=== PATIENT | male | born 1955 | race American Indian/Alaskan Native ===

== ENCOUNTER 2021-03-20 18:18 | Inpatient (IN) | payer OTHER, MEDICARE ==
[2021-03-20] MEDS ORDERED: SODIUM CHLORIDE 0.9% 1000 ML 1,000 ML IV ONE (20:05)
--- NOTE | 2021-03-20 20:07 | Emergency Department Report ---
HPI - General Time Seen by Provider: 03/20/21 20:05 - HPI HPI: This is a 65-year-old -[place] male presents to the emergency department via [facility] after a bystander or passerby noticed him slumped over in his wheelchair on the side of [facility] [[email or web address]] and called 911. The patient is currently altered and therefore a poor historian. He has never been to this emergency department previously. Unknown past medical history. He had an Accu- Chek in route that was about 120. No medications were given. EMS says that the patient became slightly more responsive once he was in the back of the ambulance with the air conditioning on him, but then once again was altered. EMS says that the patient had a room air oxygen saturation of 77% so he was placed on 3 L via nasal cannula and went up into the 90s. ED Past Medical Hx - Medications Home Medications: Home Medications Medication Instructions Recorded Confirmed Last Taken Type Amlodipine Besylate [Norvasc] 10 mg PO DAILY 03/23/21 03/23/21 03/19/21 History ED Review of Systems ROS: Stated complaint: AMS Other details as noted in HPI Comment: Unobtainable due to pts medical conditions Physical Exam - Physical Exam Physical Exam: GENERAL: The patient is well-developed well-nourished. HENT: Normocephalic. Atraumatic. Patient has moist mucous membranes. EYES: Extraocular motions are intact. Pupils equal reactive to light bilaterally. NECK: Supple. Trachea is midline. CHEST/LUNGS: Clear to auscultation. There is no respiratory distress noted. HEART/CARDIOVASCULAR: Regular. There is no tachycardia. There is no murmur. ABDOMEN: Abdomen is soft, nontender. Patient has normal bowel sounds. There is no abdominal distention. SKIN: Skin is warm and dry. NEURO: The patient is very sleepy but is easily arousable. Once awake he is oriented to person, place, time. However, he goes right back to sleep if not continuously stimulated. No facial asymmetry. Cranial nerves II through XII grossly intact. MUSCULOSKELETAL: There is no tenderness or deformity. ED Medical Decision Making - Lab Data Result diagrams: 03/22/21 05:09 03/22/21 05:09 Lab Results 03/20/21 03/20/21 03/20/21 Range/Units 20:49 20:49 20:49 WBC 4.8 (4.5-11.0) K/mm3 RBC 4.52 (3.65-5.03) M/mm3 Hgb 14.0 (11.8-15.2) gm/dl Hct 43.3 (35.5-45.6) % MCV 96 H (84-94) fl MCH 31 (28-32) pg MCHC 32 (32-34) % RDW 14.5 (13.2-15.2) % Plt Count 228 (140-440) K/mm3 Lymph % (Auto) 23.8 (13.4-35.0) % [place] % (Auto) 7.7 H (0.0-7.3) % Eos % (Auto) 1.4 (0.0-4.3) % Baso % (Auto) 0.4 (0.0-1.8) % Lymph # (Auto) 1.1 L (1.2-5.4) K/mm3 [place] # (Auto) 0.4 (0.0-0.8) K/mm3 Eos # (Auto) 0.1 (0.0-0.4) K/mm3 Baso # (Auto) 0.0 (0.0-0.1) K/mm3 Seg Neutrophils % 66.7 (40.0-70.0) % Seg Neutrophils # 3.2 (1.8-7.7) K/mm3 ABG pH (7.320-7.450) POC ABG pCO2 (32.0-48.0) mmHg POC ABG pO2 (83-108) mmHg POC ABG HCO3 ABG O2 Saturation (0-100) POC ABG Base Excess ABG Hemoglobin (12.0-17.5) ABG Oxyhemoglobin (94-98) ABG Methemoglobin (0.0-1.5) ABG Sodium (136.0-145.0) mmol/L ABG Potassium (3.40-4.50) mmol/L ABG Chloride (98-107) mmol/L ABG Glucose (65-95) mg/dL Carboxyhemoglobin (0.5-1.5) FiO2 % Sodium 140 (137-145) mmol/L Potassium 4.0 (3.6-5.0) mmol/L Chloride 105.8 (98-107) mmol/L Carbon Dioxide 22 (22-30) mmol/L Anion Gap 16 mmol/L BUN 7 L (9-20) mg/dL Creatinine 1.2 (0.8-1.3) mg/dL Estimated GFR > 60 ml/min BUN/Creatinine Ratio 6 % Glucose 107 H (75-100) mg/dL Calcium 9.1 (8.4-10.2) mg/dL Total Bilirubin 0.70 (0.1-1.2) mg/dL AST 27 (5-40) units/L ALT 31 (7-56) units/L Alkaline Phosphatase 72 (35-129) units/L Ammonia 26.0 (25-60) umol/L Troponin T < 0.010 (0.00-0.029) ng/mL Total Protein 7.5 (6.3-8.2) g/dL Albumin 4.3 (3.9-5) g/dL Albumin/Globulin Ratio 1.3 % TSH (0.270-4.200) mlU/mL Arterial Blood Glucose (65-95) mg/dL Urine Color (Yellow) Urine Turbidity (Clear) Urine pH (5.0-7.0) Ur Specific [place] (1.003-1.030) Urine Protein (Negative) mg/dL Urine Glucose (UA) (Negative) mg/dL Urine Ketones (Negative) mg/dL Urine Blood (Negative) Urine Nitrite (Negative) Urine Bilirubin (Negative) Urine Urobilinogen (<2.0) mg/dL Ur Leukocyte Esterase (Negative) Urine WBC (Auto) (0.0-6.0) /HPF Urine RBC (Auto) (0.0-6.0) /HPF Urine Mucus /HPF Urine Opiates Screen Urine Methadone Screen Ur Barbiturates Screen Ur Phencyclidine Scrn Ur Amphetamines Screen U Benzodiazepines Scrn Urine Cocaine Screen U Marijuana (THC) Screen Plasma/Serum Alcohol (0-0.07) % 03/20/21 03/20/21 03/20/21 Range/Units 20:49 20:49 21:12 WBC (4.5-11.0) K/mm3 RBC (3.65-5.03) M/mm3 Hgb (11.8-15.2) gm/dl Hct (35.5-45.6) % MCV (84-94) fl MCH (28-32) pg MCHC (32-34) % RDW (13.2-15.2) % Plt Count (140-440) K/mm3 Lymph % (Auto) (13.4-35.0) % [place] % (Auto) (0.0-7.3) % Eos % (Auto) (0.0-4.3) % Baso % (Auto) (0.0-1.8) % Lymph # (Auto) (1.2-5.4) K/mm3 [place] # (Auto) (0.0-0.8) K/mm3 Eos # (Auto) (0.0-0.4) K/mm3 Baso # (Auto) (0.0-0.1) K/mm3 Seg Neutrophils % (40.0-70.0) % Seg Neutrophils # (1.8-7.7) K/mm3 ABG pH 7.337 (7.320-7.450) POC ABG pCO2 41.7 (32.0-48.0) mmHg POC ABG pO2 68.7 L (83-108) mmHg POC ABG HCO3 21.8 ABG O2 Saturation 93.1 (0-100) POC ABG Base Excess -3.8 ABG Hemoglobin 12.8 (12.0-17.5) ABG Oxyhemoglobin 85.8 L (94-98) ABG Methemoglobin 0.3 (0.0-1.5) ABG Sodium 140.3 (136.0-145.0) mmol/L ABG Potassium 3.8 (3.40-4.50) mmol/L ABG Chloride 109.0 H (98-107) mmol/L ABG Glucose 113 H (65-95) mg/dL Carboxyhemoglobin 7.5 H (0.5-1.5) FiO2 % 21.0 Sodium (137-145) mmol/L Potassium (3.6-5.0) mmol/L Chloride (98-107) mmol/L Carbon Dioxide (22-30) mmol/L Anion Gap mmol/L BUN (9-20) mg/dL Creatinine (0.8-1.3) mg/dL Estimated GFR ml/min BUN/Creatinine Ratio % Glucose (75-100) mg/dL Calcium (8.4-10.2) mg/dL Total Bilirubin (0.1-1.2) mg/dL AST (5-40) units/L ALT (7-56) units/L Alkaline Phosphatase (35-129) units/L Ammonia (25-60) umol/L Troponin T (0.00-0.029) ng/mL Total Protein (6.3-8.2) g/dL Albumin (3.9-5) g/dL Albumin/Globulin Ratio % TSH 0.309 (0.270-4.200) mlU/mL Arterial Blood Glucose 113 H (65-95) mg/dL Urine Color (Yellow) Urine Turbidity (Clear) Urine pH (5.0-7.0) Ur Specific [place] (1.003-1.030) Urine Protein (Negative) mg/dL Urine Glucose (UA) (Negative) mg/dL Urine Ketones (Negative) mg/dL Urine Blood (Negative) Urine Nitrite (Negative) Urine Bilirubin (Negative) Urine Urobilinogen (<2.0) mg/dL Ur Leukocyte Esterase (Negative) Urine WBC (Auto) (0.0-6.0) /HPF Urine RBC (Auto) (0.0-6.0) /HPF Urine Mucus /HPF Urine Opiates Screen Urine Methadone Screen Ur Barbiturates Screen Ur Phencyclidine Scrn Ur Amphetamines Screen U Benzodiazepines Scrn Urine Cocaine Screen U Marijuana (THC) Screen Plasma/Serum Alcohol < 0.01 (0-0.07) % 03/20/21 03/20/21 Range/Units 23:51 23:51 WBC (4.5-11.0) K/mm3 RBC (3.65-5.03) M/mm3 Hgb (11.8-15.2) gm/dl Hct (35.5-45.6) % MCV (84-94) fl MCH (28-32) pg MCHC (32-34) % RDW (13.2-15.2) % Plt Count (140-440) K/mm3 Lymph % (Auto) (13.4-35.0) % [place] % (Auto) (0.0-7.3) % Eos % (Auto) (0.0-4.3) % Baso % (Auto) (0.0-1.8) % Lymph # (Auto) (1.2-5.4) K/mm3 [place] # (Auto) (0.0-0.8) K/mm3 Eos # (Auto) (0.0-0.4) K/mm3 Baso # (Auto) (0.0-0.1) K/mm3 Seg Neutrophils % (40.0-70.0) % Seg Neutrophils # (1.8-7.7) K/mm3 ABG pH (7.320-7.450) POC ABG pCO2 (32.0-48.0) mmHg POC ABG pO2 (83-108) mmHg POC ABG HCO3 ABG O2 Saturation (0-100) POC ABG Base Excess ABG Hemoglobin (12.0-17.5) ABG Oxyhemoglobin (94-98) ABG Methemoglobin (0.0-1.5) ABG Sodium (136.0-145.0) mmol/L ABG Potassium (3.40-4.50) mmol/L ABG Chloride (98-107) mmol/L ABG Glucose (65-95) mg/dL Carboxyhemoglobin (0.5-1.5) FiO2 % Sodium (137-145) mmol/L Potassium (3.6-5.0) mmol/L Chloride (98-107) mmol/L Carbon Dioxide (22-30) mmol/L Anion Gap mmol/L BUN (9-20) mg/dL Creatinine (0.8-1.3) mg/dL Estimated GFR ml/min BUN/Creatinine Ratio % Glucose (75-100) mg/dL Calcium (8.4-10.2) mg/dL Total Bilirubin (0.1-1.2) mg/dL AST (5-40) units/L ALT (7-56) units/L Alkaline Phosphatase (35-129) units/L Ammonia (25-60) umol/L Troponin T (0.00-0.029) ng/mL Total Protein (6.3-8.2) g/dL Albumin (3.9-5) g/dL Albumin/Globulin Ratio % TSH (0.270-4.200) mlU/mL Arterial Blood Glucose (65-95) mg/dL Urine Color Yellow (Yellow) Urine Turbidity Clear (Clear) Urine pH 5.0 (5.0-7.0) Ur Specific [place] 1.006 (1.003-1.030) Urine Protein <15 mg/dl (Negative) mg/dL Urine Glucose (UA) Neg (Negative) mg/dL Urine Ketones Neg (Negative) mg/dL Urine Blood Neg (Negative) Urine Nitrite Neg (Negative) Urine Bilirubin Neg (Negative) Urine Urobilinogen 4.0 (<2.0) mg/dL Ur Leukocyte Esterase Neg (Negative) Urine WBC (Auto) < 1.0 (0.0-6.0) /HPF Urine RBC (Auto) 1.0 (0.0-6.0) /HPF Urine Mucus Few /HPF Urine Opiates Screen Presumptive negative Urine Methadone Screen Presumptive negative Ur Barbiturates Screen Presumptive negative Ur Phencyclidine Scrn Presumptive negative Ur Amphetamines Screen Presumptive negative U Benzodiazepines Scrn Presumptive negative Urine Cocaine Screen Presumptive positive U Marijuana (THC) Screen Presumptive positive Plasma/Serum Alcohol (0-0.07) % - EKG Data -: EKG Interpreted by Me EKG shows normal: sinus rhythm, axis (Left axis deviation), intervals, QRS complexes, ST-T waves (Some flattening of the T waves) Rate: bradycardia (50 bpm) - EKG Data When compared to previous EKG there are: previous EKG unavailable Interpretation: other (Sinus bradycardia at 50 bpm, left axis deviation, normal intervals, some flattening of the T waves. No ST elevation LA) - Radiology Data Radiology results: report reviewed, image reviewed interpreted by me: Chest x-ray does not show any acute process. There are no pleural effusions, obvious pneumonia and there is no pneumothorax. CT HEAD WITHOUT CONTRAST INDICATION / CLINICAL INFORMATION: Altered mental status. TECHNIQUE: All CT scans at this location are performed using CT dose reduction for ALARA by means of automated exposure control. COMPARISON: None available. FINDINGS: HEMORRHAGE: No evidence of intracranial hemorrhage or extra-axial fluid collection. EXTRA-AXIAL SPACES: Cortical sulci and sylvian fissures are enlarged reflecting a degree of parenchymal volume loss which is greater than expected for the patient's age of 65 years. Basilar cisterns have an unremarkable appearance. VENTRICULAR SYSTEM: The third and lateral ventricles are enlarged reflecting presence of moderate parenchymal volume loss. CEREBRAL PARENCHYMA: Periventricular and deep white matter lucency is observed. This is probably secondary to microvascular ischemic change. There is no indication of recent infarction. There is a region of encephalomalacia in the left frontal operculum consistent with remote left MCA infarction. MIDLINE SHIFT OR HERNIATION: There is no mass effect. CEREBELLUM / BRAINSTEM: Brainstem has an unremarkable appearance. Age related cerebellar atrophy is noted. MIDLINE STRUCTURES:Pituitary gland has an unremarkable appearance. No abnormalities are seen in the pineal region. INTRACRANIAL VESSELS:Calcified atherosclerotic plaque is present along the course of the cavernous segments of both internal carotid arteries. Similar findings are seen at the distal vertebral tequila silviano. ORBITS: visualized portions of the orbits have an unremarkable appearance. SOFT TISSUES of HEAD: No significant abnormality. CALVARIUM: Evaluation of bone windows reveals no abnormalities. PARANASAL SINUSES / MASTOID AIR CELLS: Paranasal sinuses are free from inflammatory mucosal disease. Mastoid air cells are normally pneumatized. ADDITIONAL FINDINGS: None. IMPRESSION: 1. Age-related involutional changes of parenchymal volume loss and microvascular ischemia. The expected for age 65 years.. 2. Evidence of remote left MCA infarction. 3. No acute intracranial abnormality. - Medical Decision Making Initially this patient came in after the patient was seen slumped over in his wheelchair on the side of the road. The patient was arousable but is very sleepy and goes back to sleep if not continuously stimulated. CT scan of the head without contrast does not show any hemorrhage, large vessel occlusion, edema, hydrocephalus, or any other acute process. Chest x-ray does not show any pneumonia, pleural effusions, pneumothorax, widened mediastinum, or any other acute process. The patient's labs have been mostly unremarkable including CBC, metabolic panel, normal thyroid function, ammonia, urinalysis. UDS positive for cocaine and marijuana. EKG does not have any morphology consistent with ST elevation myocardial infarction. EMS said that the patient had an initial pulse ox of 77% on room air. For this reason, the patient's supplemental oxygen was removed so we could get a room air ABG. The PO2 is slightly decreased but the oxygen saturation was 93% on the ABG. The patient has remained in the emergency department for about 7 hours th us far and has been 95% or above on oxygen saturation without any supplemental oxygen. The patient has been reevaluated multiple times over multiple hours and he is much more awake and alert. He now admits to some cocaine use this evening. The patient is able to tell me that he uses a wheelchair secondary to a previous neck injury that left him with a chronic unstable gait. Initially I had hoped that the patient will remain awake and alert enough to test him in his wheelchair and assess for discharge. However, it appears that he continued to have intermittent episodes of sedation and/or alertness. This did not appear consistent with acute cocaine use, nor withdrawal. Patient was seen by my colleague and admitted to the hospital for further evaluation and treatment. Critical Care Time: No Critical care attestation.: If time is entered above; I have spent that time in minutes in the direct care of this critically ill patient, excluding procedure time. ED Disposition Clinical Impression: Unresponsive episode, Cocaine abuse Disposition: DC-01 TO HOME OR SELFCARE Is pt being admited?: No Condition: Stable Time of Disposition: 01:44
[2021-03-20] MEDS ORDERED: NALOXONE 2 MG/2 ML INJ IV ONE (20:35)
--- NOTE | 2021-03-20 20:35 | XRay Report ---
CHEST 1 VIEW INDICATION / CLINICAL INFORMATION: Altered mental status. COMPARISON: None available. FINDINGS: SUPPORT DEVICES: None. HEART / MEDIASTINUM: No significant abnormality. LUNGS / PLEURA: No significant pulmonary or pleural abnormality. No pneumothorax. ADDITIONAL FINDINGS: No significant additional findings. IMPRESSION: 1. No acute findings. Signer Name: Gail Rodriguez MD Signed: 03/20/2021 8:31 PM Workstation Name: [id number]
--- NOTE | 2021-03-20 21:05 | Cat Scan Report ---
CT HEAD WITHOUT CONTRAST INDICATION / CLINICAL INFORMATION: Altered mental status. TECHNIQUE: All CT scans at this location are performed using CT dose reduction for ALARA by means of automated e xposure control. COMPARISON: None available. FINDINGS: HEMORRHAGE: No evidence of intracranial hemorrhage or extra-axial fluid collection. EXTRA-AXIAL SPACES: Cortical sulci and sylvian fissures are enlarged reflecting a degree of parenchym al volume loss which is greater than expected for the patient's age of 65 years. Basilar cisterns hav e an unremarkable appearance. VENTRICULAR SYSTEM: The third and lateral ventricles are enlarged reflecting presence of moderate par enchymal volume loss. CEREBRAL PARENCHYMA: Periventricular and deep white matter lucency is observed. This is probably seco ndary to microvascular ischemic change. There is no indication of recent infarction. There is a regio n of encephalomalacia in the left frontal operculum consistent with remote left MCA infarction. MIDLINE SHIFT OR HERNIATION: There is no mass effect. CEREBELLUM / BRAINSTEM: Brainstem has an unremarkable appearance. Age related cerebellar atrophy is n oted. MIDLINE STRUCTURES:Pituitary gland has an unremarkable appearance. No abnormalities are seen in the p ineal region. INTRACRANIAL VESSELS:Calcified atherosclerotic plaque is present along the course of the cavernous se gments of both internal carotid arteries. Similar findings are seen at the distal vertebral arteries. ORBITS: visualized portions of the orbits have an unremarkable appearance. SOFT TISSUES of HEAD: No significant abnormality. CALVARIUM: Evaluation of bone windows reveals no abnormalities. PARANASAL SINUSES / MASTOID AIR CELLS: Paranasal sinuses are free from inflammatory mucosal disease. Mastoid air cells are normally pneumatized. ADDITIONAL FINDINGS: None. IMPRESSION: 1. Age-related involutional changes of parenchymal volume loss and microvascular ischemia. The expect ed for age 65 years.. 2. Evidence of remote left MCA infarction. 3. No acute intracranial abnormality. Signer Name: Benny London MD Signed: 03/20/2021 9:01 PM Workstation Name: [id number]
[2021-03-20 21:34] LABS: Basophils % (Auto) 0.4 % (0.0-1.8); Eosinophils # (Auto) 0.1 K/mm3 (0.0-0.4); Eosinophils % (Auto) 1.4 % (0.0-4.3); Hematocrit 43.3 % (35.5-45.6); Lymphocytes # (Auto) 1.1 K/mm3 (1.2-5.4); Lymphocytes % (Auto) 23.8 % (13.4-35.0); Mean Corpuscular HGB Conc 32 % (32-34); Mean Corpuscular Volume 96 fl (84-94); Monocytes # (Auto) 0.4 K/mm3 (0.0-0.8); Monocytes % (Auto) 7.7 % (0.0-7.3); Platelet Count 228 K/mm3 (140-440); Red Blood Count 4.52 M/mm3 (3.65-5.03); Red Cell Distribution Width 14.5 % (13.2-15.2)
[2021-03-20 21:52] LABS: Alanine Aminotransferase 31 units/L (7-56); Albumin 4.3 g/dL (3.9-5); BUN/Creatinine Ratio 6; Blood Urea Nitrogen 7 mg/dL (9-20); Calcium 9.1 mg/dL (8.4-10.2); Hemolysis Index 6
[2021-03-21 00:13] LABS: Bilirubin,Urine NEG (Negative); Blood,Urine NEG (Negative); Color,Urine Yellow (Yellow); Mucus,Urine FEW /HPF; Protein,Urine <15 mg/dL mg/dL (Negative); WBC,Urine < 1.0 /HPF (0.0-6.0)
[2021-03-21 00:30] LABS: Amphetamine Screen,Urine PRESUMPTIVE NEGATIVE; Benzodiazepines Screen,Urine PRESUMPTIVE NEGATIVE; Cannabinoid Screen,Urine PRESUMPTIVE POSITIVE; Cocaine Screen,Urine PRESUMPTIVE POSITIVE; Methadone Screen,Urine PRESUMPTIVE NEGATIVE; Opiate Screen,Urine PRESUMPTIVE NEGATIVE
--- NOTE | 2021-03-21 08:46 | Event Note ---
Date: 03/21/21 I was asked by ED physician Dr. Michel to reevaluate Mr. Flynn. The patient was asleep but arousable by tactile stimuli. Patient slow to respond and still appears groggy despite being in the ED for approximately 14 hours. Patient states he had a syncopal episode while going to the store. We will admit the patient to the hospital for further management. Hospitalist notified (Dr. Murray)
[2021-03-21] MEDS ORDERED: ONDANSETRON 4 MG/2 ML INJ IV PRN (09:34)
[2021-03-21] MEDS ORDERED: ACETAMINOPHEN 325 MG TAB PO PRN (09:34)
[2021-03-21] MEDS ORDERED: HYDROcodone/ACETAMINOPHEN 5-325 MG TAB PO PRN (09:34)
[2021-03-21] MEDS ORDERED: MORPHINE 4 MG/1 ML INJ IV PRN (09:34)
--- NOTE | 2021-03-21 09:37 | History and Physical Report ---
History of Present Illness Date of examination: 03/21/21 Date of admission: 03/21/2021 Chief complaint: Found passed out in his wheel chair in the street History of present illness: Patient is 65-year-old -[place] male with hypertension, cocaine abuse. He presented to the emergency department via [facility] after a passerby noticed him slumped over in his wheelchair on the side of [facility] and called 911. He had altered mental status when he presented here to ED. When I saw him hours later he is awake,alert,not confused. He tells me he has unsteady gait after a fall where he "broke his neck", had neck surgery, so uses wheel chair sometimes to ambulate long distances. He states he was going to store in his wheel chair when he passed out. He denies chest pain, denies shortness of breath. In Ed found to have cocaine toxicity, bradycardia in addition to syncope. Will place on observation. Past History Past Medical History: hypertension Past Surgical History: Other (Neck surgery after fall) Social history: single, smoking, full code, other (Cocaine, marijuana use) Family history: diabetes Medications and Allergies Allergies Allergy/AdvReac Type Severity Reaction Status Date / Time peanut butter Allergy Unknown Uncoded 03/20/21 20:51 Review of Systems All systems: negative (No cough, no fever, No chest pin, No abd pain. All other systenms reviewed and are negative) Exam - Physical Exam Narrative exam: Gen: Not in acute distress, lying in bed HEENT: Normocephalic, atraumatic Neck : supple, no JVD, scar back of neck Heart:S1 and S2 reg, no murmurs, rubs or gallop Lungs: clear to auscultation bilaterally, no wheeze Abd: Soft , non tender, non distended, normal bowel sounds Ext: No edema, no clubbing, no cyanosis Neuro: Awake, alert, oriented X 3, moves all ext - Constitutional Vitals: Temp Pulse Resp BP Pulse Ox 98.8 F 54 L 14 125/69 97 03/20/21 20:30 03/21/21 02:46 03/21/21 02:46 03/21/21 02:46 03/21/21 02:46 HEART Score - HEART Score Troponin: Troponin T < 0.010 ng/mL (0.00-0.029) 03/20/21 20:49 Results - Labs CBC & Chem 7: 03/22/21 05:09 03/22/21 05:09 Labs: Abnormal lab results 03/20/21 03/20/21 03/20/21 Range/Units 20:49 20:49 21:12 MCV 96 H (84-94) fl [place] % (Auto) 7.7 H (0.0-7.3) % Lymph # (Auto) 1.1 L (1.2-5.4) K/mm3 POC ABG pO2 68.7 L (83-108) mmHg ABG Oxyhemoglobin 85.8 L (94-98) ABG Chloride 109.0 H (98-107) mmol/L ABG Glucose 113 H (65-95) mg/dL Carboxyhemoglobin 7.5 H (0.5-1.5) BUN 7 L (9-20) mg/dL Glucose 107 H (75-100) mg/dL Arterial Blood Glucose 113 H (65-95) mg/dL Assessment and Plan Syncope Etiology unclear Place on obervation Telemetry Get Echocardiogram Consult Cardiology Acute toxic metabolic encephalopathy with altered mental status Due to cocaine Neurochecks Cocaine toxicity Bradycardia EKG sinus kate @ 50, non specific t wave changes Cardiology consulted Check TSH Hypertension Monitor BP DVT prophylaxis Heparin subcut Polysubstace abuse Cocaine, Marijuana I counseled him on quitting Unsteady gait from previous fall Uses wheelchair but able to stand up Full code status
[2021-03-21 09:46] LABS: BUN/Creatinine Ratio 7; Blood Urea Nitrogen 7 mg/dL (9-20); Calcium 9.7 mg/dL (8.4-10.2); Hemolysis Index 3
[2021-03-21] MEDS: HEPARIN 5,000 UNIT/1 ML VIAL SUB-Q SCH (15:00)
--- NOTE | 2021-03-21 22:40 | Consultation ---
History of Present Illness Consult date: 03/21/21 Requesting physician: CONTRERAS SHIN Consult reason: syncope History of present illness: This is a 65-year-old -Belarusian male presents to the emergency department via [facility] after a bystander or passerby noticed him slumped over in his wheelchair on the side of [facility] and called 911. The patient is currently altered and therefore a poor historian. He has never been to this emergency department previously. Unknown past medical history. He had an Accu- Chek in route that was about 120. No medications were given. EMS says that the patient became slightly more responsive once he was in the back of the ambulance with the air conditioning on him, but then once again was altered. EMS says that the patient had a room air oxygen saturation of 77% so he was placed on 3 L via nasal cannula and went up into the 90s. Past History Past Medical History: hypertension Past Surgical History: Other (Neck surgery after fall) Social history: single, smoking, full code, other (Cocaine, marijuana use) Family history: diabetes Medications and Allergies Allergies Allergy/AdvReac Type Severity Reaction Status Date / Time peanut butter Allergy Unknown Uncoded 03/20/21 20:51 Active Meds: Active Medications Acetaminophen (Acetaminophen 325 Mg Tab) 650 mg PO Q4H PRN PRN Reason: Pain MILD(1-3)/Fever >100.5/DEL ROSARIO Hydrocodone Bitart/Acetaminophen (Hydrocodone/Acetaminophen 5-325 Mg Tab) 2 each PO Q6H PRN PRN Reason: Pain, Moderate (4-6) Heparin Sodium (Porcine) (Heparin 5,000 Unit/1 Ml Vial) 5,000 unit SUB-Q Q8HR [facility] Last Admin: 03/21/21 15:00 Dose: 5,000 unit Documented by: Sodium Chloride (Nacl 0.9% 1000 Ml) 1,000 mls @ 75 mls/hr IV DIRECT KENYON Morphine Sulfate (Morphine 4 Mg/1 Ml Inj) 4 mg IV Q4H PRN PRN Reason: Pain , Severe (7-10) Ondansetron HCl (Ondansetron 4 Mg/2 Ml Inj) 4 mg IV Q8H PRN PRN Reason: Nausea And Vomiting Sodium Chloride (Sodium Chloride 0.9% 10 Ml Flush Syringe) 10 ml IV BID [facility] Last Admin: 03/21/21 13:04 Dose: 10 ml Documented by: Sodium Chloride (Sodium Chloride 0.9% 10 Ml Flush Syringe) 10 ml IV PRN PRN PRN Reason: LINE FLUSH Physical Examination Vital Signs Temp Pulse Resp BP Pulse Ox 98.8 F 62 18 138/94 94 03/20/21 20:30 03/20/21 20:30 03/20/21 20:30 03/20/21 20:30 03/20/21 20:30 Results 03/20/21 20:49 03/21/21 08:59 Comprehensive Metabolic Panel 03/21/21 Range/Units 08:59 Sodium 145 (137-145) mmol/L Potassium 4.0 (3.6-5.0) mmol/L Chloride 108.4 H (98-107) mmol/L Carbon Dioxide 27 (22-30) mmol/L BUN 7 L (9-20) mg/dL Creatinine 1.0 (0.8-1.3) mg/dL Glucose 115 H (75-100) mg/dL Calcium 9.7 (8.4-10.2) mg/dL Assessment and Plan 65 Male Discharge History of proctocolitis ([place] 08/09 admission) Hypertension Hyperlipidemia Stroke PCP/[facility] center Incidntial finding during [place] admission 08/09: positive RPR, Patient has been treated for syphilis in past but elected to treat again. x 3 doses of Penicillin G 2.4 million Units x 3 doses. HIV test is negative admitted with Altered mental status/?Syncope +cocaine/marijuana Observation Telemetry Echo pending
[2021-03-22] MEDS: HEPARIN 5,000 UNIT/1 ML VIAL SUB-Q SCH ×4 (00:35→22:08)
[2021-03-22 05:47] LABS: Basophils % (Auto) 0.3 % (0.0-1.8); Eosinophils # (Auto) 0.2 K/mm3 (0.0-0.4); Eosinophils % (Auto) 3.4 % (0.0-4.3); Hematocrit 40.9 % (35.5-45.6); Hemoglobin 13.2 gm/dl (11.8-15.2); Lymphocytes # (Auto) 1.6 K/mm3 (1.2-5.4); Lymphocytes % (Auto) 32.4 % (13.4-35.0); Mean Corpuscular HGB Conc 32 % (32-34); Mean Corpuscular Volume 95 fl (84-94); Monocytes # (Auto) 0.5 K/mm3 (0.0-0.8); Monocytes % (Auto) 10.5 % (0.0-7.3); Platelet Count 228 K/mm3 (140-440); Red Blood Count 4.31 M/mm3 (3.65-5.03); Red Cell Distribution Width 13.9 % (13.2-15.2)
[2021-03-22 05:53] LABS: BUN/Creatinine Ratio 8; Blood Urea Nitrogen 10 mg/dL (9-20); Calcium 9.4 mg/dL (8.4-10.2); Hemolysis Index 10
--- NOTE | 2021-03-22 10:38 | Electrocardiograph Report ---
[facility] Test Date: 2021-03-21 Test Time: 01:33:58 Pat Name: SHARMIN SONG Department: Room: A484 1 Gender: M [employer] Specialist: HUMBERTO : 1955 Requested By: CONTRERAS SHIN Order Number: [id number] Reading MD: Agapito Flores Measurements Intervals [place] Rate: 50 P: 0 NV: 164 QRS: -35 QRSD: 104 T: -29 QT: 417 QTc: 381 Interpretive Statements Sinus bradycardia Left axis deviation Nonspecific T abnormalities, inferior leads No previous ECG available for comparison Electronically Signed On 03-22-2021 10:38:37 EDT by Agapito Flores
--- NOTE | 2021-03-22 12:48 | Electrocardiograph Report ---
[facility] Test Date: 2021-03-22 Test Time: 08:11:53 Pat Name: SHARMIN SONG Department: Room: A484 1 Gender: M Medical Imaging Specialist: ENRIQUETA : 1955 Requested By: LAWANDA LEARY Order Number: [id number] Reading MD: Devin Kline Measurements Intervals [place] Rate: 47 P: 62 WI: 150 QRS: -31 QRSD: 105 T: -24 QT: 443 QTc: 392 Interpretive Statements Sinus bradycardia Left axis deviation Compared to ECG 03/21/2021 01:33:58 No significant change Electronically Signed On 03-22-2021 12:48:19 EDT by Devin Kline
--- NOTE | 2021-03-22 13:56 | Progress Note ---
Assessment and Plan Assessment and plan: Syncope Etiology unclear Telemetry Get Echocardiogram Consulted Cardiology Acute toxic metabolic encephalopathy with altered mental status Due to cocaine Neurochecks Cocaine toxicity Sinus Bradycardia EKG sinus kate @ 50, non specific t wave changes Cardiology consulted, following TSH normal He was on Amlodipine at home, a possible though uncommon cause of bradycardia Hypertension Monitor BP DVT prophylaxis Heparin subcut Polysubstace abuse Cocaine, Marijuana I counseled him on quitting Unsteady gait from previous fall Uses wheelchair but able to stand up Hypertensive urgency Amlodipine Hydralazine iv prn Full code status 03/22/21 Patient admitted for acute toxic metabolic encephalopathy due to cocaine toxicity, sinus bradycardia. Cardiology following. Still sinus kate HR 40-50s, so not stable for discharge Had hypertensive urgency today BP 185/105, so Hydralazine po q 8h, and Hyd ralazine iv prn He was on Amlodipine at home, but will not give because of bradycardia. Change status to inpatient as per Case Management History Interval history: Feels better No chest pain No SOB Says he was on Amlodipine 10mg daily at home Hospitalist Physical - Physical exam Narrative exam: Gen: Not in acute distress, lying in bed HEENT: Normocephalic, atraumatic Neck : supple, no JVD, scar back of neck Heart:S1 and S2 reg, no murmurs, rubs or gallop Lungs: clear to auscultation bilaterally, no wheeze Abd: Soft , non tender, non distended, normal bowel sounds Ext: No edema, no clubbing, no cyanosis Neuro: Awake, alert, oriented X 3, moves all ext - Constitutional Vitals: Temp Pulse Resp BP Pulse Ox 98.8 F 52 L 14 146/83 99 03/20/21 20:30 03/22/21 06:15 03/22/21 02:30 03/22/21 02:30 03/22/21 05:24 HEART Score - HEART Score Troponin: Troponin T < 0.010 ng/mL (0.00-0.029) 03/20/21 20:49 Results - Labs CBC & Chem 7: 03/22/21 05:09 03/22/21 05:09 Labs: Laboratory Last Values WBC 4.8 K/mm3 (4.5-11.0) 03/22/21 05:09 RBC 4.31 M/mm3 (3.65-5.03) 03/22/21 05:09 Hgb 13.2 gm/dl (11.8-15.2) 03/22/21 05:09 Hct 40.9 % (35.5-45.6) 03/22/21 05:09 MCV 95 fl (84-94) H 03/22/21 05:09 MCH 31 pg (28-32) 03/22/21 05:09 MCHC 32 % (32-34) 03/22/21 05:09 RDW 13.9 % (13.2-15.2) 03/22/21 05:09 Plt Count 228 K/mm3 (140-440) 03/22/21 05:09 Lymph % (Auto) 32.4 % (13.4-35.0) 03/22/21 05:09 [place] % (Auto) 10.5 % (0.0-7.3) H 03/22/21 05:09 Eos % (Auto) 3.4 % (0.0-4.3) 03/22/21 05:09 Baso % (Auto) 0.3 % (0.0-1.8) 03/22/21 05:09 Lymph # (Auto) 1.6 K/mm3 (1.2-5.4) 03/22/21 05:09 [place] # (Auto) 0.5 K/mm3 (0.0-0.8) 03/22/21 05:09 Eos # (Auto) 0.2 K/mm3 (0.0-0.4) 03/22/21 05:09 Baso # (Auto) 0.0 K/mm3 (0.0-0.1) 03/22/21 05:09 Seg Neutrophils % 53.4 % (40.0-70.0) 03/22/21 05:09 Seg Neutrophils # 2.6 K/mm3 (1.8-7.7) 03/22/21 05:09 ABG pH 7.337 (7.320-7.450) 03/20/21 21:12 POC ABG pCO2 41.7 mmHg (32.0-48.0) 03/20/21 21:12 POC ABG pO2 68.7 mmHg (83-108) L 03/20/21 21:12 POC ABG HCO3 21.8 03/20/21 21:12 ABG O2 Saturation 93.1 (0-100) 03/20/21 21:12 POC ABG Base Excess -3.8 03/20/21 21:12 ABG Hemoglobin 12.8 (12.0-17.5) 03/20/21 21:12 ABG Oxyhemoglobin 85.8 (94-98) L 03/20/21 21:12 ABG Methemoglobin 0.3 (0.0-1.5) 03/20/21 21:12 ABG Sodium 140.3 mmol/L (136.0-145.0) 03/20/21 21:12 ABG Potassium 3.8 mmol/L (3.40-4.50) 03/20/21 21:12 ABG Chloride 109.0 mmol/L (98-107) H 03/20/21 21:12 ABG Glucose 113 mg/dL (65-95) H 03/20/21 21:12 Carboxyhemoglobin 7.5 (0.5-1.5) H 03/20/21 21:12 FiO2 % 21.0 03/20/21 21:12 Sodium 143 mmol/L (137-145) 03/22/21 05:09 Potassium 3.7 mmol/L (3.6-5.0) 03/22/21 05:09 Chloride 107.5 mmol/L (98-107) H 03/22/21 05:09 Carbon Dioxide 27 mmol/L (22-30) 03/22/21 05:09 Anion Gap 12 mmol/L 03/22/21 05:09 BUN 10 mg/dL (9-20) 03/22/21 05:09 Creatinine 1.2 mg/dL (0.8-1.3) 03/22/21 05:09 Estimated GFR > 60 ml/min 03/22/21 05:09 BUN/Creatinine Ratio 8 % 03/22/21 05:09 Glucose 133 mg/dL (75-100) H 03/22/21 05:09 Calcium 9.4 mg/dL (8.4-10.2) 03/22/21 05:09 Total Bilirubin 0.70 mg/dL (0.1-1.2) 03/20/21 20:49 AST 27 units/L (5-40) 03/20/21 20:49 ALT 31 units/L (7-56) 03/20/21 20:49 Alkaline Phosphatase 72 units/L (35-129) 03/20/21 20:49 Ammonia 26.0 umol/L (25-60) 03/20/21 20:49 Troponin T < 0.010 ng/mL (0.00-0.029) 03/20/21 20:49 Total Protein 7.5 g/dL (6.3-8.2) 03/20/21 20:49 Albumin 4.3 g/dL (3.9-5) 03/20/21 20:49 Albumin/Globulin Ratio 1.3 % 03/20/21 20:49 TSH 0.673 mlU/mL (0.270-4.200) 03/21/21 08:59 Arterial Blood Glucose 113 mg/dL (65-95) H 03/20/21 21:12 Urine Color Yellow (Yellow) 03/20/21 23:51 Urine Turbidity Clear (Clear) 03/20/21 23:51 Urine pH 5.0 (5.0-7.0) 03/20/21 23:51 Ur Specific [place] 1.006 (1.003-1.030) 03/20/21 23:51 Urine Protein <15 mg/dl mg/dL (Negative) 03/20/21 23:51 Urine Glucose (UA) Neg mg/dL (Negative) 03/20/21 23:51 Urine Ketones Neg mg/dL (Negative) 03/20/21 23:51 Urine Blood Neg (Negative) 03/20/21 23:51 Urine Nitrite Neg (Negative) 03/20/21 23:51 Urine Bilirubin Neg (Negative) 03/20/21 23:51 Urine Urobilinogen 4.0 mg/dL (<2.0) 03/20/21 23:51 Ur Leukocyte Esterase Neg (Negative) 03/20/21 23:51 Urine WBC (Auto) < 1.0 /HPF (0.0-6.0) 03/20/21 23:51 Urine RBC (Auto) 1.0 /HPF (0.0-6.0) 03/20/21 23:51 Urine Mucus Few /HPF 03/20/21 23:51 Urine Opiates Screen Presumptive negative 03/20/21 23:51 Urine Methadone Screen Presumptive negative 03/20/21 23:51 Ur Barbiturates Screen Presumptive negative 03/20/21 23:51 Ur Phencyclidine Scrn Presumptive negative 03/20/21 23:51 Ur Amphetamines Screen Presumptive negative 03/20/21 23:51 U Benzodiazepines Scrn Presumptive negative 03/20/21 23:51 Urine Cocaine Screen Presumptive positive 03/20/21 23:51 U Marijuana (THC) Screen Presumptive positive 03/20/21 23:51 Drugs of Abuse Note Disclamer 03/20/21 23:51 Plasma/Serum Alcohol < 0.01 % (0-0.07) 03/20/21 20:49 Active Medications - Current Medications Current Medications: Generic Name Dose Route Start Last Admin Trade Name Freq PRN Reason Stop Dose Admin Acetaminophen 650 mg 03/21/21 09:34 Acetaminophen 325 Mg Tab PO Q4H PRN Pain MILD(1-3)/Fever >100.5/DE LROSARIO Hydrocodone Bitart/Acetaminophen 2 each 03/21/21 09:34 Hydrocodone/Acetaminophen 5-325 Mg Tab PO Q6H PRN Pain, Moderate (4-6) Heparin Sodium (Porcine) 5,000 unit 03/21/21 14:00 03/22/21 06:12 Heparin 5,000 Unit/1 Ml Vial SUB-Q 5,000 unit Q8HR KENYON Administration Sodium Chloride 1,000 mls @ 75 mls/hr 03/21/21 09:45 Nacl 0.9% 1000 Ml IV DIRECT KENYON Morphine Sulfate 4 mg 03/21/21 09:34 Morphine 4 Mg/1 Ml Inj IV Q4H PRN Pain , Severe (7-10) Ondansetron HCl 4 mg 03/21/21 09:34 Ondansetron 4 Mg/2 Ml Inj IV Q8H PRN Nausea And Vomiting Sodium Chloride 10 ml 03/21/21 10:00 03/22/21 00:55 Sodium Chloride 0.9% 10 Ml Flush Syringe IV 10 ml BID KENYON Administration Sodium Chloride 10 ml 03/21/21 09:34 Sodium Chloride 0.9% 10 Ml Flush Syringe IV PRN PRN LINE FLUSH
[2021-03-22] MEDS: SODIUM CHLORIDE 0.9% 1000 ML 1,000 ML IV SCH (14:07)
--- NOTE | 2021-03-22 16:00 | Progress Note ---
Assessment and Plan Syncope/Bradycardia * Echo 03/21/2021- EF 50 to 55%, mild diastolic dysfunction is present, mild to moderate aortic regurgitation right ventricular systolic function is normal * EKG shows- EKG sinus kate @ 50, non specific t wave changes * TSH normal, Troponins negativex1. Trend CE Substance Abuse * Patient endorses crack/cocaine use, etoh 1pint per day, tobacco use * Cessation recommended Patient seen in conjunction with Dr. Flores who agrees with plan of care. Will continue to follow - Patient Problems (1) ETOH abuse Current Visit: Yes Status: Acute (2) Bradycardia Current Visit: Yes Status: Acute (3) Cocaine abuse Current Visit: Yes Status: Acute Subjective Date of service: 03/22/21 Principal diagnosis: syncope, AMS Interval history: Patient resting in bed. Reports ache in chest when moving Sinus bradycardia 40-502 on monitor with no events Objective Last Vital Signs Temp 98.8 F 03/20/21 20:30 Pulse 52 L 03/22/21 06:15 Resp 14 03/22/21 02:30 BP 146/83 03/22/21 02:30 Pulse Ox 97 03/22/21 10:00 - Physical Examination General: No Apparent Distress HEENT: Positive: PERRL Neck: Positive: trachea midline Cardiac: Positive: Regular Rhythm, Bradycardia Lungs: Positive: clear to auscultation, Normal Breath Sounds Neuro: Positive: Grossly Intact Abdomen: Positive: Unremarkable, Soft Extremities: Present: upper extr. pulses. Absent: edema - Labs and Meds CBC 03/22/21 Range/Units 05:09 WBC 4.8 (4.5-11.0) K/mm3 RBC 4.31 (3.65-5.03) M/mm3 Hgb 13.2 (11.8-15.2) gm/dl Hct 40.9 (35.5-45.6) % Plt Count 228 (140-440) K/mm3 Lymph # (Auto) 1.6 (1.2-5.4) K/mm3 [place] # (Auto) 0.5 (0.0-0.8) K/mm3 Eos # (Auto) 0.2 (0.0-0.4) K/mm3 Baso # (Auto) 0.0 (0.0-0.1) K/mm3 Comprehensive Metabolic Panel 03/22/21 Range/Units 05:09 Sodium 143 (137-145) mmol/L Potassium 3.7 (3.6-5.0) mmol/L Chloride 107.5 H (98-107) mmol/L Carbon Dioxide 27 (22-30) mmol/L BUN 10 (9-20) mg/dL Creatinine 1.2 (0.8-1.3) mg/dL Glucose 133 H (75-100) mg/dL Calcium 9.4 (8.4-10.2) mg/dL - Telemetry EKG Rhythm: Sinus Bradycardia - EKG Sinus rhythms and dysrhythmias: sinus bradycardia
[2021-03-22] MEDS ORDERED: hydrALAZINE 20 MG/1 ML INJ IV ONE (17:34)
[2021-03-22] MEDS ORDERED: hydrALAZINE 20 MG/1 ML INJ IV PRN (18:03)
[2021-03-22] MEDS: hydrALAZINE 25 MG TAB PO SCH (22:08)
[2021-03-23] MEDS: HEPARIN 5,000 UNIT/1 ML VIAL SUB-Q SCH ×3 (05:52→23:28)
[2021-03-23] MEDS: hydrALAZINE 25 MG TAB PO SCH ×3 (05:52→23:28)
[2021-03-23] MEDS: SODIUM CHLORIDE 0.9% 1000 ML 1,000 ML IV SCH ×2 (05:55→13:56)
[2021-03-23] MEDS ORDERED: amLODIPine 10 MG TAB PO SCH (10:00)
--- NOTE | 2021-03-23 13:46 | Progress Note ---
Assessment and Plan #1 syncope patient no further episodes of dizziness most likely secondary to drug use and abuse. Patient has Lexiscan scheduled for a.m. Echocardiogram ejection fraction 50 to 55%. Patient denies chest pain still has bradycardia. #2 acute toxic encephalopathy secondary to crack cocaine use and abuse has resolved. #3 cocaine toxicity-has resolved has not used while in hospital. #4 hypertension well controlled with amlodipine 10 mg #5 sinus bradycardia patient still not stable for discharge current pulse of 52 #6 polysubstance abuse alcohol cocaine patient is been educated on alcohol cessation and cocaine cessation and its effect on the heart. Subjective Date of service: 03/23/21 Principal diagnosis: syncope, AMS Interval history: Patient states he feels much better. Able to get up stand go to wheelchair. Hospital course complicated by continued bradycardia currently at 52. Patient scheduled for lexiscan in am. Objective - Constitutional Vitals: Vital Signs - 12hr 03/23/21 03/23/21 04:01 08:16 Temperature 97.6 F 99.0 F Pulse Rate 52 L Respiratory 18 18 Rate Blood Pressure 146/86 156/96 O2 Sat by Pulse 97 Oximetry General appearance: Present: no acute distress, well-nourished - EENT Eyes: PERRL, EOM intact ENT: hearing intact, clear oral mucosa Ears: bilateral: normal - Neck Neck: supple, normal ROM - Respiratory Respiratory effort: normal Respiratory: bilateral: CTA - Breasts Breasts: normal - Cardiovascular Rhythm: regular Heart Sounds: Present: S1 & S2. Absent: gallop, rub Extremities: pulses intact, No edema, normal color, Full ROM - Gastrointestinal General gastrointestinal: Present: soft, non-tender, non-distended, normal bowel sounds - Genitourinary Male genitourinary: normal - Integumentary Integumentary: clear, warm, dry - Musculoskeletal Musculoskeletal: 1, strength equal bilaterally - Neurologic Neurologic: moves all extremities - Psychiatric Psychiatric: memory intact, appropriate mood/affect, intact judgment & insight - Labs CBC & Chem 7: 03/22/21 05:09 03/22/21 05:09 HEART Score - HEART Score Troponin: Troponin T < 0.010 ng/mL (0.00-0.029) 03/23/21 04:56
--- NOTE | 2021-03-23 14:23 | Progress Note ---
Assessment and Plan Syncope/Bradycardia * Echo 03/21/2021- EF 50 to 55%, mild diastolic dysfunction is present, mild to moderate aortic regurgitation right ventricular systolic function is normal * EKG shows- EKG sinus kate @ 50, non specific t wave changes * TSH normal, Troponins negativex2. * Plan for Lexiscan stress test in the AM. Patient NPO after midnight Substance Abuse * Patient endorses crack/cocaine use, etoh 1pint per day, tobacco use * Cessation recommended Plan for Lexiscan stress test in the AM. NPO after midnight Patient seen in conjunction with Dr. Flores who agrees with plan of care. Will continue to follow - Patient Problems (1) ETOH abuse Current Visit: Yes Status: Acute (2) Bradycardia Current Visit: Yes Status: Acute (3) Cocaine abuse Current Visit: Yes Status: Acute Subjective Date of service: 03/23/21 Principal diagnosis: syncope, AMS Interval history: Patient sitting in bed. Reports he feels much better with no cardiac complaints Sinus bradycardia 50s-60s on monitor with no events Objective Last Vital Signs Temp 99.0 F 03/23/21 08:16 Pulse 52 L 03/23/21 08:16 Resp 18 03/23/21 08:16 BP 156/96 03/23/21 08:16 Pulse Ox 97 03/23/21 08:16 - Physical Examination General: No Apparent Distress HEENT: Positive: PERRL Neck: Positive: trachea midline Cardiac: Positive: Regular Rhythm, S1/S2, Bradycardia Lungs: Positive: clear to auscultation Neuro: Positive: Grossly Intact Abdomen: Positive: Unremarkable, Soft Extremities: Present: upper extr. pulses. Absent: edema - Imaging and Cardiology EKG: report reviewed, image reviewed Echo: report reviewed, image reviewed - Telemetry EKG Rhythm: Sinus Bradycardia - EKG Sinus rhythms and dysrhythmias: sinus bradycardia
[2021-03-24] MEDS: hydrALAZINE 25 MG TAB PO SCH ×2 (05:53→14:42)
[2021-03-24] MEDS: HEPARIN 5,000 UNIT/1 ML VIAL SUB-Q SCH ×2 (05:58→14:42)
[2021-03-24] MEDS ORDERED: REGADENOSON 0.4 MG/5 ML INJ IV ONE ×2 (06:41→08:36)
[2021-03-24] MEDS ORDERED: amLODIPine 5 MG TAB PO NR (08:32)
--- NOTE | 2021-03-24 11:11 | Treadmill Report ---
DATE OF SERVICE: 03/24/2021 NUCLEAR STRESS TEST REFERRING PHYSICIAN: Hospitalist service. PROTOCOL: The patient was brought to the stress lab in postabsorptive state given 10 mCi of technetium at rest. The patient had rest imaging. The patient underwent Lexiscan stress test. At peak stress, the patient given 26 mCi of technetium. Shortly thereafter, the patient underwent stress imaging. Raw imaging reveals mild GI artifact, no significant motion effect. SPECT imaging examined carefully in horizontal long axis, vertical long axis, short axis views. There was normal mitral uptake of radioisotope in all port segments. No evidence of significant fixed or reversible perfusion defect suggestive of prior infarction or ischemia. Gated wall motion 66%. CONCLUSIONS: 1. Normal myocardial perfusion scan without evidence of active ischemia or prior infarction. 2. Normal left ventricular systolic performance without evidence of transient ischemic dilatation or stress induced segmental wall motion abnormalities. TID: [id number] RECEIPT: [id number] [facility]/KERLINE
--- NOTE | 2021-03-24 12:23 | Progress Note ---
Assessment and Plan Syncope/Bradycardia * Echo 03/21/2021- EF 50 to 55%, mild diastolic dysfunction is present, mild to moderate aortic regurgitation right ventricular systolic function is normal * EKG shows- EKG sinus kate @ 50, non specific t wave changes * TSH normal, Troponins negativex2. * Lexiscan MPI stress test 03/24/2021-normal perfusion without evidence of active ischemia or prior infarct. Normal left ventricular function without evidence of ischemic dilation Substance Abuse * Patient endorses crack/cocaine use, etoh 1pint per day, tobacco use * Cessation recommended Lexiscan MPI stress test showed normal perfusion without evidence of ischemia or prior infarct Patient cardiac status stable. [facility] Patient seen in conjunction with Dr. Flores who agrees with plan of care. Will see as needed - Patient Problems (1) ETOH abuse Current Visit: Yes Status: Acute (2) Bradycardia Current Visit: Yes Status: Acute (3) Cocaine abuse Current Visit: Yes Status: Acute Subjective Date of service: 03/24/21 Principal diagnosis: syncope, AMS Interval history: Patient at stress lab this AM for Lexiscan stress test. Sinus 60s on monitor with no events Objective Last Vital Signs Temp 99.2 F 03/23/21 21:22 Pulse 50 L 03/23/21 21:22 Resp 18 03/23/21 21:22 BP 173/82 03/24/21 05:53 Pulse Ox 100 03/24/21 00:00 - Physical Examination General: No Apparent Distress HEENT: Positive: PERRL Neck: Positive: trachea midline Cardiac: Positive: Reg Rate and Rhythm Lungs: Positive: clear to auscultation, Normal Breath Sounds Neuro: Positive: Grossly Intact Abdomen: Positive: Unremarkable, Soft Extremities: Present: upper extr. pulses. Absent: edema - Imaging and Cardiology EKG: report reviewed, image reviewed Pharmacologic stress test: report reviewed Echo: report reviewed, image reviewed - Telemetry EKG Rhythm: Sinus Rhythm - EKG Sinus rhythms and dysrhythmias: sinus bradycardia
--- NOTE | 2021-03-24 13:04 | Discharge Summary ---
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 Serial troponins negative Lexiscan unremarkable EKG no evidence of ischemia. Hospital course: Patient originally presented with acute metabolic encephalopathy secondary to cocaine toxicity. Was noted to have sinus bradycardia therefore patient received cardiac work-up which was unremarkable. Patient educated on discontinuing alcohol and cocaine. Follow-up at the [facility] 1 to 2 weeks. 03/22/21 Patient admitted for acute toxic metabolic encephalopathy due to cocaine toxicity, sinus bradycardia. Cardiology following. Still sinus kate HR 40-50s, so not stable for discharge Had hypertensive urgency today BP 185/105, so Hydralazine po q 8h, and Hydralazine iv prn He was on Amlodipine at home, but will not give because of bradycardia. Change status to inpatient as per Case Management Disposition: DC-01 TO HOME OR SELFCARE Final Discharge Diagnosis (Prints w/discharge instructions): Acute metabolic encephalopathy secondary to cocaine toxicity Core Measure Documentation - Palliative Care Palliative Care/ Comfort Measures: Not Applicable - Core Measures Any of the following diagnoses?: none Exam - Constitutional Vitals: Temp Pulse Resp BP Pulse Ox 99.2 F 50 L 18 173/82 100 03/23/21 21:22 03/23/21 21:22 03/23/21 21:22 03/24/21 05:53 03/24/21 00:00 General appearance: Present: no acute distress, well-nourished - EENT Eyes: Present: PERRL ENT: hearing intact, clear oral mucosa - Neck Neck: Present: supple, normal ROM - Respiratory Respiratory effort: normal Respiratory: bilateral: CTA - Cardiovascular Heart Sounds: Present: S1 & S2. Absent: rub, click - Extremities Extremities: pulses symmetrical, No edema Peripheral Pulses: within normal limits - Abdominal General gastrointestinal: Present: soft, non-tender, non-distended, normal bowel sounds Male genitourinary: Present: normal - Integumentary Integumentary: Present: clear, warm, dry - Musculoskeletal Musculoskeletal: gait normal, strength equal bilaterally - Psychiatric Psychiatric: appropriate mood/affect, intact judgment & insight - Neurologic Neurologic: CNII-XII intact, moves all extremities Plan Activity: no restrictions Weight Bearing Status: Full Weight Bearing Diet: low carbohydrate Follow up with: [facility] [Provider Group] - 2-3 Days MARLA OLIVIER MD [Staff Physician] - 2-3 Days
[2021-03-24 13:25] VITALS: BP 138/78
== END 2021-03-24 17:58 | disposition home or self-care (01) | DRG 917 ==
LOC: ED 18:18 → 4A 03-21 09:41 → OBSVTOIN 03-22 16:14
PROVIDERS: ADMIT Internal Medicine; ATTEND Internal Medicine
PROC: 4A033R1 Measurement of Arterial Saturation, Peripheral, Percutaneous Approach (ICD-10-PCS; principal; 2021-03-20)
DX: T40.5X4A Poisoning by cocaine, undetermined, initial encounter (principal); G92 Toxic encephalopathy; I10 Essential (primary) hypertension; I16.0 Hypertensive urgency; F10.10 Alcohol abuse, uncomplicated; E78.5 Hyperlipidemia, unspecified; Y92.89 Other specified places as the place of occurrence of the external cause; Z83.3 Family history of diabetes mellitus; Z91.011 Allergy to milk products; Z91.010 Allergy to peanuts; Z79.899 Other long term (current) drug therapy; Z79.891 Long term (current) use of opiate analgesic; Z79.01 Long term (current) use of anticoagulants; F14.10 Cocaine abuse, uncomplicated
CPT/HCPCS: 36415; 70450; 71045; 78452; 80048; 80053; 80307; 80320; 81001; 82140; 82805; 84443; 84484; 85025; 93005; 93017; 93306; 99406; G0378; A9502; G0480; J0360; J1644; J2310; J2785; J7030